=== PATIENT | male | born 1940 | race Two or more races ===

== ENCOUNTER 2022-10-14 11:04 | Emergency (ER) | payer OTHER, MEDICAID ==
[~2022-10-14] VITALS: Ht 193 cm; Wt 100.0 kg
[2022-10-14 11:17] VITALS: BP 167/90
[2022-10-14] MEDS ORDERED: ASPirin 325 MG TAB PO ONE (11:30)
[2022-10-14 12:46] LABS: Basophils # (auto) 0 10 ^3/uL (0-0.2); Basophils % (auto) 0.2 % (0.0-2.0); Eosinophils # (auto) 0 10 ^3/uL (0-0.8); Eosinophils % (auto) 0.1 % (0.0-7.0); Hematocrit 38.7 % (41.0-53.0); Hemoglobin 12.6 g/dL (13.5-17.5); Lymphocytes # (auto) 1.5 10 ^3/uL (0.4-5.4); Lymphocytes % (auto) 13.5 % (10.0-50.0); Mean Corpuscular Hemoglobin 29.9 pg (28.0-32.0); Mean Corpuscular Hgb Conc. 32.5 g/dL (32.0-36.0); Mean Corpuscular Volume 91.9 fL (80.0-100.0); Monocytes # (auto) 1.1 10 ^3/uL (0-1.3); Neutrophils # (auto) 8.5 10 ^3/uL (1.6-8.6); Neutrophils % (auto) 76.2 % (37.0-80.0); Nucleated Red Blood Cells % 0.2 %; Red Blood Cells 4.22 10^6/uL (4.5-5.90); Red Cell Distribution Width 15.9 % (11.8-14.3); White Blood Cell 11.1 10^3/uL (4.4-10.8)
[2022-10-14 13:06] LABS: Albumin 3.6 g/dL (3.4-5.0); BUN/Creatinine Ratio 24.6; Potassium 4.5 mmol/L (3.5-5.1)
[2022-10-14 13:09] LABS: Bilirubin, Total 0.9 mg/dL (0.2-1.0); Total Protein 7.3 g/dL (6.4-8.2)
== END 2022-10-14 16:57 | disposition left against medical advice (07) ==
LOC: ER 11:04 → EDBD 11:04 → ER 16:57
DX: J44.9 Chronic obstructive pulmonary disease, unspecified (principal); K80.20 Calculus of gallbladder without cholecystitis without obstruction; I10 Essential (primary) hypertension; V49.49XA Driver injured in collision with other motor vehicles in traffic accident, initial encounter; Y93.89 Activity, other specified; Y92.410 Unspecified street and highway as the place of occurrence of the external cause; Y99.8 Other external cause status
CPT/HCPCS: 36415; 71250; 80053; 84484; 85025; 93005